=== PATIENT | female | born 1950 | race Hispanic/Latino ===

== ENCOUNTER → 2019-03-07 | Outpatient (CLI) | payer MEDICARE, OTHER ==
[~2019-03-07] MED LIST: IOPAMIDOL 370 MG/ML 200 ML INFUS..BTL INJ ONE; OMEPRAZOLE40 MG PO; SODIUM CHLORIDE 0.9% 250ML 250 ML ONE
[2019-03-07 15:36] LABS: BLOOD UREA NITROGEN 16 mg/dL (7-26); BUN/CREATININE RATIO 18 (6-25); CREATININE, SERUM 0.89 mg/dL (0.57-1.11); EST GLOMERULAR FILTRATION RATE > 60 ML/MIN (60-)
--- NOTE | 2019-03-07 21:30 | Diagnostic Imaging Report ---
EXAM: CT Abdomen and Pelvis WITHOUT and WITH contrast INDICATION: MICROSCOPIC HEMATURIA COMPARISON: None. TECHNIQUE: Abdomen and pelvis were scanned utilizing a multidetector helical scanner from the lung base to the pubic symphysis before and after administration of IV contrast. Coronal and sagittal reformations were obtained. Routine protocol was performed. Scan was performed when during portal venous phase. IV CONTRAST: 100 mL of Isovue 370 ORAL CONTRAST: Water COMPLICATIONS: None RADIATION DOSE: Total DLP: 1399 mGy*cm Estimated effective dose: (DLP x 0.015 x size factor) mSv CTDIvol has been reviewed. It is below the limits set by the Radiation Protocol Committee (RPC). Dose modulation, iterative reconstruction, and/or weight based adjustment of the mA/kV was utilized to reduce the radiation dose to as low as reasonably achievable. FINDINGS: LINES and TUBES: None. LOWER THORAX: Coronary artery calcifications. HEPATOBILIARY: No focal hepatic lesions. No biliary ductal dilation. GALLBLADDER: Surgical changes of cholecystectomy and the gallbladder fossa. SPLEEN: No splenomegaly. PANCREAS: No focal masses or ductal dilatation. ADRENALS: No adrenal nodules KIDNEYS/URETERS: Kidneys enhance symmetrically. No hydronephrosis. There are scattered too small to characterize hypodensites, likely benign. No stones. On excretory phase, the calyces, pelves and ureters completely opacified with contrast and no lesion is identified. There are renal vascular calcifications. GI TRACT: No abnormal distention, wall thickening, or evidence of bowel obstruction. Appendix is normal. PELVIC ORGANS/BLADDER: Calcified uterine fibroids. No adnexal masses. . The urinary bladder wall is normal. On the prone delayed excretory contrast enhanced sequence, excreted contrast occupies most of the bladder lumen, delineating thin by mucosal lung the anterior and lateral aspects of the bladder. However the excreted contrast layers in the dependent portion of the bladder, and the entire bladder lumen is not occupied by excreted contrast, limiting evaluation of the posterior aspect of the urinary bladder mucosa. LYMPH NODES: No lymphadenopathy. VESSELS: Unremarkable. PERITONEUM / RETROPERITONEUM: No free air or fluid. BONES: There are degenerative changes in the spine. SOFT TISSUES: Unremarkable. IMPRESSION: No abnormalities identified in the urinary tract to explain microscopic hematuria however exam is somewhat limited due to lack of complete contrast opacification of the bladder lumen on delayed excretory phase. If symptoms persist, recommend urology referral with consideration of direct visualization of the bladder mucosa as a small posterior bladder mucosal lesion cannot be entirely excluded on the basis of this exam. Signed by: Giovany Zavala DO on 03/07/2019 9:27 PM
== END ==
LOC: CT 13:47
PROVIDERS: ATTEND Urology
DX: R31.21 Asymptomatic microscopic hematuria (principal)
CPT/HCPCS: 36415; 74178; 82565; 84520; J7050; Q9967

== ENCOUNTER → 2019-11-14 | Day surgery (SDC) | payer MEDICARE, OTHER ==
[~2019-11-14] MED LIST changes: +BUPIVACAINE 0.25% 30ML SDV INJ ONE; +CRESTOR10 MG PO; +DEXAMETHASONE SOD PHOS INJ 4 MG/ML VIAL ONE; +FENTANYL CITRATE/PF 100MCG/2 ML INJ ONE; -IOPAMIDOL 370 MG/ML 200 ML INFUS..BTL INJ ONE; +LIDOCAINE HCL 2% LOCAL INJ 5 ML SDV VIAL INJ ONE; +MEPERIDINE HCL INJ 25 MG/ML VIAL ONE; +ONDANSETRON HCL INJ 2MG/ML 2ML 2 MG/ML VIAL ONE; +PROPOFOL IV EMULSION 10 MG/ML 20 ML VIAL ONE; +SEVOFLURANE INHAL SOLN 250 ML PEN BTL ONE; -SODIUM CHLORIDE 0.9% 250ML 250 ML ONE; +TOVIAZ8 MG PO; +VIT D PO
[2019-11-14 11:10] LABS: BASOPHILS % 0.5 % (0.0-1.0); EOSINOPHILS # (AUTO) 0.1 (0.0-0.4); EOSINOPHILS % 0.6 % (0.0-6.0); HEMATOCRIT 52.2 % (34.2-44.1); HEMOGLOBIN 17.4 g/dL (12.0-16.0); LYMPHOCYTES # (AUTO) 2.9 (1.0-3.2); LYMPHOCYTES % 34.3 % (18.0-39.1); MEAN CORPUSCULAR HGB CONC 33.3 g/dL (31-35); MONOCYTES # (AUTO) 0.6 (0.2-0.8); MONOCYTES % 6.6 % (4.4-11.3); NEUTROPHILS # (AUTO) 4.9 (2.1-6.9); NEUTROPHILS % 57.8 % (38.7-80.0); PLATELET COUNT 227 x10e3/uL (140-360); RED BLOOD COUNT 5.44 x10e6/uL (3.6-5.1); RED CELL DISTRIBUTION WIDTH 13.9 % (11.7-14.4)
[2019-11-14 11:30] LABS: ALANINE AMINOTRANSFERASE 16 IU/L (0-55); ALBUMIN/GLOBULIN RATIO 1.3 (0.8-2.0); ALKALINE PHOSPHATASE 111 IU/L (40-150); ANION GAP 11.3 mmol/L (8-16); BLOOD UREA NITROGEN 17 mg/dL (7-26); BUN/CREATININE RATIO 20 (6-25); CALCIUM 9.5 mg/dL (8.4-10.2); CARBON DIOXIDE 25 mmol/L (22-29); CHLORIDE 110 mmol/L (98-107); CREATININE, SERUM 0.83 mg/dL (0.57-1.11); EST GLOMERULAR FILTRATION RATE > 60 ML/MIN (60-); GLUCOSE 94 mg/dL (74-118); POTASSIUM 4.3 mmol/L (3.5-5.1); SODIUM 142 mmol/L (136-145)
--- NOTE | 2019-11-14 11:53 | Diagnostic Imaging Report ---
EXAMINATION: CHEST 2 VIEWS INDICATION: Pre-operative COMPARISON: None FINDINGS: LINES/TUBES:None LUNGS:The lungs are well-inflated. No focal consolidation or pulmonary edema. PLEURA:No pleural effusion or pneumothorax. MEDIASTINUM:The cardiomediastinal silhouette appears normal in size and shape. BONES/SOFT TISSUES:No acute osseous injury. ABDOMEN:No free air under the diaphragm. Status post cholecystectomy. IMPRESSION: No focal pneumonia or pulmonary edema. Signed by: Kilo Retana MD on 11/14/2019 11:49 AM
--- NOTE | 2019-11-14 15:59 | Operative Report ---
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 OPERATIONS PERFORMED: Right partial mastectomy with preoperative ultrasound-guided needle localization and intraoperative specimen mammography. CONTRACTING EXECUTIVE: DARRELL Aguayo. ANESTHESIA: General. COMPLICATIONS: None. ESTIMATED BLOOD LOSS: Minimal. DESCRIPTION OF PROCEDURE: With the patient lying in bed in the supine position under good general anesthesia, after having undergone a needle localization of the area in question in the right breast, the right breast was then prepped with Betadine solution and draped in the usual manner. The subareolar area in the right breast was then infiltrated with 0.25% Marcaine. An incision was made and the wire was then identified and followed to the area in question. The whole area in question was then slowly and carefully removed. 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 The whole area was then thoroughly irrigated. Perfect hemostasis was ascertained. The breast tissue was then reapproximated with interrupted sutures of 2-0 chromic and the skin was closed with continuous subcuticular 5-0 Vicryl. Benzoin, Steri-Strips, and dressings were applied. The sponge, lap, and needle count was correct. The patient tolerated the procedure well and returned to the recovery room in stable condition. MD TERESA Genao/MODL /[id number]
[2019-11-14 16:22] VITALS: BP 143/79
--- NOTE | 2019-11-17 08:46 | Diagnostic Imaging Report ---
THIS REPORT HAS BEEN AMENDED. #[id number] - [id number] SPECIMEN RIGHT BREAST: 11/14/2019 Correlation is made to exams dated: 11/14/2019 localization - [facility] and 09/29/2019 mammogram - [facility]. A surgical specimen was imaged for the previous biopsy site located in the right breast at 12 o'clock in the retroareolar region. This was described on the previous mammography report. IMPRESSION: SPECIMEN The imaged specimen includes a biopsy clip and the distal portion of the localization wire. Follow-up with ACR/ACS guidelines. HUSSAIN FROST M.D. kw/penrad:11/14/2019 16:01:34 Mechanical Piping Designer: Tatum SPEARS(R)(M), [facility] AMENDMENT: 12/29/2019 HUSSAIN FROST M.D. Pathology report from the biopsy has become available. The report indicates: Atypical lobular hyperplasia. This result is concordant with imaging findings. Please refer to the full report, or consult the hospital pathologist, for additional details.
--- NOTE | 2019-11-17 08:46 | Diagnostic Imaging Report ---
#[id number] - [id number] MAMMOGRAPHY GUIDED WIRE LOCALIZATION RIGHT BREAST: 11/14/2019 Correlation is made to exams dated: 09/29/2019 mammogram, 09/15/2019 mammogram, 05/13/2018 mammogram, 09/29/2019 ultrasound biopsy and 09/15/2019 ultrasound - [facility]. A wire localization using mammography guidance was performed for the marker clip located in the right breast central to the nipple in the retroareolar region. The skin was prepped in the usual manner. A J-hook wire was inserted into the targeted area under mammography guidance. IMPRESSION: WIRE LOCALIZATION Wire localization for the marker clip in the right breast central to the nipple in the retroareolar region was successful. Follow-up with ACR/ACS guidelines. HUSSAIN FROST M.D. kw/:11/14/2019 16:00:26 Audio Engineer: Tatum CÁRDENAS)(M), [facility] [id number]
== END | disposition home or self-care (01) ==
LOC: OR 10:26
PROVIDERS: ATTEND Surgery
DX: D24.1 Benign neoplasm of right breast (principal); Z01.810 Encounter for preprocedural cardiovascular examination; Z01.812 Encounter for preprocedural laboratory examination; Z01.818 Encounter for other preprocedural examination; Z88.0 Allergy status to penicillin
CPT/HCPCS: 19281; 19301; 36415; 71046; 76098; 80053; 85025; 88307; 93005; J1100; J2001; J2175; J2405; J2704; J3010